=== PATIENT | male | born 1995 | race Caucasian/White ===

== ENCOUNTER 2020-05-16 22:46 | Emergency (ER) | payer OTHER | END 2020-05-17 01:12 | disposition home or self-care (01) | LOC: JER 22:46 | PROC: 0HQGXZZ Repair Left Hand Skin, External Approach (ICD-10-PCS; principal; 2020-05-16) | DX: S61.311A Laceration without foreign body of left index finger with damage to nail, initial encounter (principal) | CPT/HCPCS: 99282-25 ==